=== PATIENT | female | born 2005 | race Caucasian/White ===

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

== ENCOUNTER 2025-09-16 14:18 | Outpatient (OUT) | payer OTHER, SELFPAY ==
--- OUTSIDE RECORDS SUMMARY | 2025-09-16 14:24 | XMS_ITS | Encounter Summary ---
Author Organization [facility] Address [address] [place] [address] Care Team Providers Care Uppers Edge Burnisher Name Role Phone Unallocated, Noms Provider Primary Care Provi maggie Reason for Visit * ReasonOnset DateCommentsLab Ingypm1009/15/2025 Encounter Details DateTypeDepartmentCare Team (Latest Contact Info)Ymnainwctbs81/18/2025Telephone JUAN Regalado OBGYN [address] [place] [address] Mickey Donis DO [address] Sunil Regalado, [facility]11 Lab Orders Social History Tobacco UseTypesPacks/DayYears UsedDateSmoking Tobacco: NeverSmokeless Tobacco: NeverAlcohol UseStandard Drinks/WeekCommentsNot Currently0 (1 standard drink = 0.6 oz pure alcohol)PHQ-2AnswerDate RecordedPatient Health Questionnaire-2 Score 3CommentsNoSex and Gender InformationValueDate RecordedSex Assigned at BirthNot on fileLegal AiiHqzodi77/15/2023 7:09 PM EDTGender Identity Xgzaid8912/11/2022 7:09 PM EDTSexual OrientationNot on filedocumented as of this encounter Miscellaneous Notes * Telephone Encounter - Lin Griffin - 09/15/2025 11:59 AM EST Order for HCG Quant was sent to [facility]! Advised patient to do two draws skipping a day in between. Voiced to the patient that we will reach out to her once we have the results. documented in this encounter Plan of Treatment DateTypeDepartmentCare Team (Latest Contact Info)Dfjgqsycvzx83/16/2026 10:30 AM ESTAncillary Procedure [facility] [address] [facility] [place] [place] [address] 10/14/2025 11:00 AM ESTInitial [facility] [place] [address] [place] [address] NameTypePriorityAssociated DiagnosesOrder SchedulehCG, quantitative, LabRoutine Positive urine test ([facility]) Missed menses 4 Occurrences starting 09/15/2025 until 09/15/2026documented as of this encounter Visit Diagnoses Diagnosis Positive urine test ([facility]) Missed menses documented in this encounter Care Teams Team MemberRelationshipSpecialtyStart DateEnd Date Unallocated, Noms MD Tim [address] [place] [address] PCP - GeneralFamily Ldhexypu89/30/24documented as of this encounter
--- OUTSIDE RECORDS SUMMARY | 2025-09-16 14:24 | XMS_ITS | Clinical Summary ---
Author Organization [facility] Address [address] [place] [address] Care Team Providers Care School Child Care Attendant Name Role Phone Pardeeptameka Virgilio Alexandra Primary Care Provider [phone] Allergies No known active allergies Medications MedicationSigDispense QuantityRefillsLast FilledStart DateEnd DateStatus levothyroxine (SYNTHROID) 50 mcg tablet Take 50 mcg by mouth daily before breakfast.Active OXcarbazepine (TRILEPTAL) 300 mg/5 mL suspension Take by mouth twice daily.Active Active Problems ProblemNoted DateDiagnosed DateHypothyroidism (acquired)06/02/2012 Family History Medical HistoryRelationCommentsAllergiesBrotherArthritisFatherCoronary Artery DiseaseMaternal GrandfatherDiabetesMaternal GrandfatherHypertensionMaternal GrandfatherLipidsMaternal GrandfatherBlood DiseaseMaternal GrandmotheranemiaGI Maternal GrandmotherpancreatitisHearing LossMaternal GrandmotherAllergies Paternal GrandfatherAsthmaPaternal GrandfatherBlood DiseasePaternal Grandmother anemiaDiabetesPaternal GrandmotherOsteoporosisPaternal GrandmotherAllergies SisterThyroidSisterRelationStatusCommentsBrotherFatherMaternal Grandfather Maternal GrandmotherPaternal GrandfatherPaternal GrandmotherSister Social History Tobacco UseTypesPacks/DayYears UsedDateSmoking Tobacco: Never Assessed CommentsUnknownSex and Gender InformationValueDate RecordedSex Assigned at Not on fileLegal UfrWszqzh72/02/2012 10:16 AM ESTGender IdentityNot on file Sexual OrientationNot on file Last Filed Vital Signs Vital SignReadingTime TakenCommentsBlood Nuovlmeu580/65005/27/2012 2:41 PM EDT Wqrwg46513/29/2012 2:41 PM USFOkhfakucsva58.1 ??C (98.8 ??F)05/27/2012 2:41 PM EDTRespiratory Oeei791705/27/2012 2:41 PM EDTOxygen Lpdykpqqff30%05/27/2012 2:41 PM EDTInhaled Oxygen Concentration--Dvbtnu14 kg (77 lb 2.6 oz)05/27/2012 2:41 PM MLKUgjvgx065.4 cm (3' 11.8 )05/27/2012 2:41 PM EDTBody Mass Index23.75005/27/2012 2:41 PM EDT Plan of Treatment Health MaintenanceDue DateLast DoneCommentsPeds To Adult Transition Initial Jdvbubukbk63/21/2017Peds To Adult Transition Annual Pgyyuaygaw81/21/2019HPV Vaccine (1 - 3-dose series)2020Meningococcal B Vaccine (1 of 2 - Standard) 2021nxiety Lnsrrqbim06/21/2023hlamydia Screening (18-24)2023 Depression Siaxalxdl36/21/2023C (Gonorrhea) Screening (18-24)2023HIV Eieiiqjea74/21/2023Hepatitis C Edlsuaxul45/21/2023DTaP,Tdap,Td Vaccine (1 - Tdap)2024Hepatitis B Vaccine (1 of 3 - 19+ 3-dose series)2024ovid- 19 Vaccine (1 - season)2025Influenza Vaccine (#1)2025 Insurance Care Teams Team MemberRelationshipSpecialtyStart DateEnd Date Virgilio Ramsey [address] [place] [address] PCP - GeneralPediatrics04/21/12
--- OUTSIDE RECORDS SUMMARY | 2025-09-16 14:24 | XMS_ITS | Clinical Summary ---
Author Organization [facility] Address [address] [place] [address] Care Team Providers Care Sales Agent Protective Service Name Role Phone Unallocated, [facility] Provider Primary Care Provi maggie Allergies No known active allergies Medications MedicationSigDispense QuantityRefillsLast FilledStart DateEnd DateStatus OXcarbazepine (Trileptal) 300 MG tablet Indications:Seizure (HCC)Take 3 tablets (900 mg) by mouth in the morning and 3 tablets (900 mg) before bedtime. 540 tablet 4Active levothyroxine (Synthroid) 100 MCG tablet Indications:Central hypothyroidismTake 0.5 tablets (50 mcg) by mouth in the morning and 0.5 tablets (50 mcg) in the evening. Take before meals. 90 tablet 03/30/2024ctive fluticasone (Flonase) 50 MCG/ACT nasal spray Indications:Fluid level behind tympanic membrane of left earAdminister 1 spray into each nostril in the morning and 1 spray before bedtime. Shake gently. Before first use, prime pump. After use, clean tip and replace cap.. 16 g 4Active Additional Information Patient not taking.Reported on 06/19/2025 amoxicillin (Amoxil) 875 MG tablet Indications:Acute recurrent frontal sinusitis1 po bid until all taken. 20 tablet 5Active Additional Information Patient not taking.Reported on 06/19/2025 levothyroxine (Synthroid, Levoxyl) 25 MCG tablet Indications:Abnormal thyroid function testTAKE 1 TABLET BY MOUTH EVERY DAY 30 tablet 5Active Active Problems ProblemNoted DateDiagnosed DateNonintractable generalized idiopathic epilepsy without status piahhdrsszi24/26/2024cquired cognitive frbloptwdcx05/02/2023 Central otrrvqtyszvmks05/02/2023rrhythmia, sinus node04/30/2023utonomic nebtggmanos25/02/2023hronic fatigue lsippfjf62/02/2023raves uiajwyb1304/30/2023 Michael's kmztfgtczxo11/02/2023Hemochromatosis aykdzlt7404/30/2023Late-onset childhood epilepsy 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/30/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 04/30/2023Learning xdaskdbgby27/02/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)04/28/2019 Resolved Problems ProblemNoted DateDiagnosed DateResolved DateAcquired niwrocepltvwkx83/02/2023 09/05/2023 Encounters DateTypeDepartmentCare XtmoXfhngixssyu63/18/2025Telephone [facility] [address] [place] [address] [place] [address] Mickey Donis, DO Lab Orzgxg2107/20/2025Refill [facility] [address] [place] [address] Colleen Herring MD Abnormal thyroid function test06/19/2025 2:15 PM EDTAncillary Procedure [facility] [address] [facility] [address] [place] [address] Acute left ankle pain06/19/2025 1:55 PM EDTOffice Visit [facility] [address] [facility] [address] [place] [address] Gena Graham, CHRIS Acute left ankle pain (Primary Dx)06/19/2025Travelfrom Last 3 Months Immunizations ImmunizationAdministration DatesNext YoaFBuL9210/03/2006,03/10/2006,01/06/2006, 2005DTaP / IPV05/31/2011HPV, Exbpkhqvdiki55/22/2019,03/31/2018Hep A, ped/adol, 2 dose10/20/2018,05/31/2011Hep B, Adolescent or Qiusudwzq12/08/2006, 2005Hib (PRP-T)10/03/2006,01/06/2006,2005Hib / Hep B003/10/2006IPV 03/10/2006,01/06/2006,2005Influenza, injectable, MDCK, preservative free, fjxnunstwqxy07/22/2023,08/04/2020Influenza, injectable, quadrivalent, preservative free10/13/2022Influenza, seasonal, xpugtidnwc01/05/2007MMR 05/31/2011,10/03/2006Meningococcal PDK8J0103/31/2018Meningococcal Polysaccharide A,C,Y,W-135 TT Ekyqhlkao32/22/2023Moderna Bivalent Booster Eotrkochnme08/15/2023 Novel bzgzasvyi-R3L1-90, preservative-free08/08/2009Pfizer Purple Cap SARS-CoV-2 Mmscrtswoxn93/22/4126IOXA-YSO-5 (COVID-19) vaccine, mRNA, spike protein, LNP, bivalent, preservative free, 30 mcg/0.3 mLdose, cosmo-sucrose formulation 10/13/2022Tdap03/31/20188772Uoppkmvti98/02/2011,10/03/2006 Family History Medical HistoryRelationNameCommentsDepressionBrotherDepressionFatherOther cancer FatherColorectalCancerMaternal GrandmotherEsophageal cancerPaternal Grandfather Prostate cancerPaternal GrandfatherAllergiesSister 1has twin sisterRelationName StatusCommentsBrother1/2 brotherFatherAliveMaternal GrandmotherDeceasedMother AlivePaternal GrandfatherDeceasedSister 11 sisterSister 9Wjymt9/2 sister Social History Tobacco UseTypesPacks/DayYears UsedDateSmoking Tobacco: NeverSmokeless Tobacco: Never Tobacco Cessation:Counseling Given: Yes Alcohol UseStandard Drinks/WeekCommentsNot Currently0 (1 standard drink = 0.6 oz pure alcohol)PHQ-2AnswerDate RecordedPatient Health Questionnaire-2 Score0 3CommentsNoSex and Gender InformationValueDate RecordedSex Assigned at BirthNot on fileLegal UtvVwykyq36/15/2023 7:09 PM EDTGender Identity Wyhifm7112/11/2022 7:09 PM EDTSexual OrientationNot on file Last Filed Vital Signs Vital SignReadingTime TakenCommentsBlood Ilkhymkx502/8406/19/2025 2:08 PM EDT Ftzkd1200 2:08 PM LJWXpwvrkhktwp11.6 ??C (97.8 ??F)06/19/2025 2:08 PM EDTRespiratory Cnrj602604/28/2025 4:46 PM EDTOxygen Dkjnoydjcx23%06/19/2025 2:08 PM EDTInhaled Oxygen Concentration--Bbgcfn38.8 kg (145 lb)06/19/2025 2:08 PM EDT Mjeyai996 cm (5' 3 )04/28/2025 4:46 PM EDTBody Mass Index25.69004/28/2025 4:46 PM EDT Plan of Treatment DateTypeDepartmentCare Team (Latest Contact Info)Wktrxirknbp41/16/2026 10:30 AM ESTAncillary Procedure [facility] [address] [place] [address] [place] [address] 10/14/2025 11:00 AM ESTInitial [facility] [place] [address] Health MaintenanceDue DateLast DoneCommentsCOVID-19 Vaccine ( season) , 11/17/2023, 10/13/2022, Additional history existsInfluenza Vaccine (#1), 07/20/2023, 10/13/2022, Additional history existsPneumococcal Vaccine: Pediatrics (0 to 5 Years) and At-Risk Patients (6 to 64 Years)Aged OutNo longer eligible based on patient's age to complete this topic Procedures Procedure NamePriorityDate/TimeAssociated DiagnosisCommentsXR ANKLE 2 VIEWS LEFT Igeonxy8606/19/2025 2:20 PM EDT Acute left ankle pain from Last 3 Months Results * XR ankle 2 views left (06/19/2025 2:20 PM EDT)Anatomical RegionLaterality ModalityLower Extremities, AnkleLeftRadiographic ImagingSpecimen (Source) Anatomical Location / LateralityCollection Method / VolumeCollection Time Received Time06/20/2025 1:59 PM EDT Impressions 06/20/2025 1:59 PM EDT No acute osseous findings. ELECTRONICALLY SIGNED BY: Henrik Whitman MD Narrative 06/20/2025 1:59 PM EDT EXAMINATION/TECHNIQUE: XR ANKLE 2 VIEWS LEFT HISTORY: Left ankle pain. COMPARISON: None RESULT: No acute fracture. No dislocation. Ankle mortise intact. Soft tissues unremarkable. Joint spaces maintained. Procedure Note Henrik Whitman MD - 06/20/2025 EXAMINATION/TECHNIQUE: XR ANKLE 2 VIEWS LEFT HISTORY: Left ankle pain. COMPARISON: None RESULT: No acute fracture. No dislocation. Ankle mortise intact. Soft tissues unremarkable. Joint spaces maintained. IMPRESSION: No acute osseous findings. ELECTRONICALLY SIGNED BY: Henrik Whitman MD Authorizing ProviderResult TypeResult StatusRejeannie Graham NPIMG XR PROCEDURES Final Result from Last 3 Months Insurance Care Teams Team MemberRelationshipSpecialtyStart DateEnd Date Unallocated, [facility] Tim, [address] [place] [address] PCP - GeneralFamily Kvvsvzvs07/30/24
--- OUTSIDE RECORDS SUMMARY | 2025-09-16 14:24 | XMS_ITS | Clinical Summary ---
Author Organization [facility] [place] [address] Care Team Providers Care Instructional Resource Teacher Name Role Phone Migue Pedro MD Primary Care Provider [phone] Allergies No known active allergies Medications * This document contains information received from the source organization and may not represent a complete record from that organization. MedicationSigDispense QuantityRefillsLast FilledStart DateEnd DateStatus thyroid (ARMOUR) 30 MG tablet 1 tablet on an empty pgvfxkt4102/14/2022ctive OXcarbazepine (TRILEPTAL) 300 MG tablet TAKE 3 TABLETS BY MOUTH IN AM AND 4 TABS IN PM 210 Tablet ctive Active Problems ProblemNoted DateDiagnosed DateLearning yharudxk79/27/2016Decreased strength, endurance, and fniuawjp02/22/2015 Overview (06/20/2015): deconditioned Lltwfvxywcproj69/09/2014enign occipital epilepsy of wptrmleah33/05/2013 Social History Tobacco UseTypesPacks/DayYears UsedDateSmoking Tobacco: NeverSmokeless Tobacco: NeverAlcohol UseStandard Drinks/WeekCommentsNo0 (1 standard drink = 0.6 oz pure alcohol)CommentsUnknownSex and Gender InformationValueDate RecordedSex Assigned at BirthNot on fileLegal IcgNvmwyt24/20/2012 6:03 PM ESTGender Identity Not on fileSexual OrientationNot on file Last Filed Vital Signs Vital SignReadingTime TakenCommentsBlood Xmngxjpk665/7306/06/2022 3:38 PM EDT Tcauq748403/08/2022 3:38 PM KOFFhmgobebadv67.3 ??C (97.3 ??F)03/08/2022 3:38 PM EDTRespiratory Vzfz9958 3:57 PM EDTOxygen Cltajphiya47%08/31/2015 12:35 PM ESTInhaled Oxygen Concentration--Japnqp31.7 kg (162 lb 7.7 oz)03/08/2022 3:38 PM ACBWblvhc502 cm (5' 1.81 )03/08/2022 3:38 PM EDTBody Mass Index29.906 3:38 PM EDT Plan of Treatment Health MaintenanceDue DateLast DoneCommentsVision Apcthqldf87/21/2020MenB (1 of 2 - MenB 2-Dose Series Bexsero)2021Hearing Jexfpyzkd88/21/2023COVID-19 ( season)5010/13/2022, 03/20/2021, 02/27/2021FLU (#1)05/30/2025 07/20/2023, 10/13/2022, 08/04/2020, Additional history existsTetanus Diphtheria and Pertussis Vaccines (7 - Td or Tdap)8003/31/2018, 05/31/2011, 10/03/2006, Additional history existsHepatitis TTmyxmihqm21/12/2006, 2005, 08/22/2005RZDAfepquqjl36/05/2007, 03/10/2006, 01/06/2006, Additional history axgexlMEHMwzadicjx11/02/2011, 10/03/20065498AbclsOaeocvyqi96/02/2011, 03/10/2006, 01/06/2006, Additional history grjwhmYgsypdrqlFskzmuijy29/02/2011, 10/03/2006HPV Zgzcizqiy26/22/2019, 03/31/2018Hepatitis WNmlwrcoeh39/22/2019, 05/31/2011MenACWY Smjplfiur62/22/2023, 07/03/2018NirsevimabAged OutNo longer eligible based on patient's age to complete this topicPneumococcalAged OutNo longer eligible based on patient's age to complete this topicRotavirusAged OutNo longer eligible based on patient's age to complete this topic Insurance Care Teams Team MemberRelationshipSpecialtyStart DateEnd Date Migue Pedro MD [address] [place] [address] [facility]06/07/14
[2025-09-16 16:51] LABS: Free T3 2.08 pg/mL (2.18-3.98); Thyroid Stimulating Hormone 4.090 uIU/mL (0.358-3.740)
== END 2025-09-16 14:19 | disposition home or self-care (01) ==
LOC: LAB 14:21
PROVIDERS: PCP Family Medicine; Visit Provider Internal Medicine
DX: R94.6 Abnormal results of thyroid function studies (principal)
CPT/HCPCS: 36415; 84439; 84443; 84481